=== PATIENT | male | born 1985 | race Caucasian/White ===

== ENCOUNTER 2020-04-02 20:46 | Emergency (ER) | payer OTHER ==
[2020-04-02] MEDS ORDERED: cefTRIAXone 2 GM in Sodium Chloride 0.9% 50 ML IV ONE (21:16)
[2020-04-02] MEDS ORDERED: Sodium Chloride 0.9% 10 ML Syringe FLUSH PRN (21:16)
[2020-04-02] MEDS ORDERED: Sulfamethoxazole/Trimethoprim 800-160 MG Tab PO ONE (21:17)
[2020-04-02] MEDS ORDERED: Acetaminophen 500 MG Tab PO ONE (21:17)
--- NOTE | 2020-04-02 21:22 | EDM.PDOC ---
ED HPI GENERAL MEDICAL PROBLEM - General Chief Complaint: Lower Extremity Injury/Pain Stated Complaint: POSSIBLE INFECTION LT LEG Time Seen by Provider: 04/02/20 21:05 Source of Information: Reports: Patient, RN. Denies: Old Records History Limitations: Reports: Other (no old records) - History of Present Illness INITIAL COMMENTS - FREE TEXT/NARRATIVE: 34 yo male presents with drainage from a skin blister on his L knee and generalized redness of the L knee and L leg below the knee. No fever. No hx of diabetes. Had a scrape on his L knee for a couple of weeks that was healing, then developed a blister on the anterior lower knee that drained earlier today and over the course of the day today has developed generalized redness of that leg from the knee down. Is visiting until tomorrow from [place]. Onset: Gradual Duration: Day(s):, Getting Worse Location: Reports: Lower Extremity, Left Quality: Reports: Dull Severity: Mild Improves with: Reports: None Worsens with: Reports: Other (time) Context: Reports: Other (See HPI) Associated Symptoms: Reports: No Other Symptoms. Denies: Fever/Chills Treatments PLUG ASSEMBLER: Reports: Other (see below) (none) Left Knee Pain Score (Numeric/FACES): 4 - Related Data Allergies Allergy/AdvReac Type Severity Reaction Status Date / Time No Known Allergies Allergy Verified 04/02/20 20:58 Home Meds: Home Meds Naproxen [Naprosyn] 500 mg PO BID 04/02/20 [History] Past Medical History Musculoskeletal History: Reports: Fracture Other Musculoskeletal History: Femur, Hand Neurological History: Reports: Concussion Dermatologic History: Reports: Other (See Below) Other Dermatologic History: skin abcess - Infectious Disease History Infectious Disease History: Reports: Chicken Pox Social & Family History - Tobacco Use Smoking Status *Q: Never Smoker Second Hand Smoke Exposure: No - Caffeine Use Caffeine Use: Reports: Coffee, Energy Drinks, Soda, Tea - Alcohol Use Days Per Week of Alcohol Use: 0 - Recreational Drug Use Recreational Drug Use: No Review of Systems - Review of Systems Review Of Systems: See Below Constitutional: Reports: No Symptoms. Denies: Chills, Fever Skin: Reports: Erythema (from L knee down. ), Wound (large blister on L anterior knee.). Denies: Pruritis Neurological: Reports: No Symptoms ED EXAM, GENERAL - Physical Exam Exam: See Below Exam Limited By: No Limitations General Appearance: Alert, WD/WN, No Apparent Distress Eye Exam: Bilateral Eye: Normal Inspection Ears: Normal External Exam, Normal Canal, Hearing Grossly Normal Ear Exam: Bilateral Ear: Auricle Normal, Canal Normal Nose: Normal Inspection, No Blood Throat/Mouth: Normal Inspection, Normal Lips, Normal Oropharynx, Normal Voice, No Airway Compromise Head: Atraumatic, Normocephalic Neck: Normal Inspection Respiratory/Chest: No Respiratory Distress, Lungs Clear, Normal Breath Sounds, No Accessory Muscle Use Cardiovascular: Regular Rate, Rhythm, No Edema Extremities: Pedal Edema (trace edema of the calf on the L and ankle/foot), Increased Warmth (L leg from knee down. ), Redness (L knee and down.), Other (No joint effusion apparent. No joint pain with knee movement. ) Neurological: Alert, Oriented, CN II-XII Intact, Normal Cognition, No Motor/Sensory Deficits Psychiatric: Normal Affect, Normal Mood Skin Exam: Warm, Dry, No Rash, Erythema (L knee and down to foot), Increased Warmth (L knee and down to foot. ) ED TRAUMA EXTREMITY PROCEDURES - I&D Site: L anterior knee Skin Prep: Chlorhexidine (Hibiciens), Isopropyl Alcohol (Alcohol) Drainage: Clear, Bloody, Small Amount Probed to Break Up Loculations: No Progress/Comments: after prep of the skin I attempted to aspirate fluid from what appeared to be an already burst large blister to the anterior L knee. I was able to aspirate a small amt of clear, bloody fluid that was sent to lab for culture. Course - Vital Signs Last Recorded V/S: Last Vital Signs Temp 36.3 C 04/02/20 21:06 Pulse 90 04/02/20 21:06 Resp 16 04/02/20 21:06 BP 154/88 H 04/02/20 21:06 Pulse Ox 96 04/02/20 21:06 - Orders/Labs/Meds Orders: Active Orders 24 hr Category Date Time Status CULTURE WOUND + SMEAR [RM] Stat Lab 04/02/20 21:30 Results Sodium Chloride 0.9% [Saline Flush] Med 04/02/20 21:16 Active 10 ml FLUSH ASDIRECTED PRN Saline Lock Insert [OM.PC] Routine Oth 04/02/20 21:16 Ordered Medication Orders Sodium Chloride (Saline Flush) 10 ml FLUSH ASDIRECTED PRN PRN Reason: Keep Vein Open Last Admin: 04/02/20 21:38 Dose: 10 ml Documented by: JONNIE Salazar: Medications Generic Name Dose Route Start Last Admin Trade Name Freq PRN Reason Stop Dose Admin Sodium Chloride 10 ml 04/02/20 21:16 04/02/20 21:38 Saline Flush FLUSH 10 ml ASDIRECTED PRN Administration Keep Vein Open Discontinued Medications Generic Name Dose Route Start Last Admin Trade Name Freq PRN Reason Stop Dose Admin Acetaminophen 1,000 mg 04/02/20 21:17 04/02/20 21:32 Tylenol Extra Strength PO 04/02/20 21:18 1,000 mg ONETIME ONE Administration Ceftriaxone Sodium 2 gm/ 50 mls @ 100 mls/hr 04/02/20 21:16 04/02/20 21:39 Sodium Chloride IV 04/02/20 21:45 100 mls/hr ONETIME ONE Administration Trimethoprim/Sulfamethoxazole 1 tab 04/02/20 21:17 04/02/20 21:32 Septra Ds PO 04/02/20 21:18 1 tab ONETIME ONE Administration Departure - Departure Time of Disposition: 22:25 Disposition: Home, Self-Care 01 Condition: Fair Clinical Impression: Cellulitis of leg, left - Discharge Information *PRESCRIPTION DRUG MONITORING PROGRAM REVIEWED*: No *COPY OF PRESCRIPTION DRUG MONITORING REPORT IN PATIENT YRN: No Instructions: Cellulitis, Adult, [id number] Referrals: PCP,None [Primary Care Provider] - Forms: ED Department Discharge Additional Instructions: Keep left leg elevated above your heart. Take acetaminophen up to 1000 mg every 6 hrs for pain relief. Take both antibiotics as directed, your next TMP/SMZ will be due when pharmacies open in the morning. Your next cephalexin will be due at bedtime tomorrow night. Recheck Saturday morning with your doctor, return if worse in the interim. Sepsis Event Note (ED) - Evaluation Sepsis Screening Result: No Definite Risk - Focused Exam Vital Signs: Vital Signs Temp Pulse Resp BP Pulse Ox 04/02/20 21:06 36.3 C 90 16 154/88 H 96 - My Orders Last 24 Hours: My Active Orders 04/02/20 21:16 Sodium Chloride 0.9% [Saline Flush] 10 ml FLUSH ASDIRECTED PRN Saline Lock Insert [OM.PC] Routine 04/02/20 21:30 CULTURE WOUND + SMEAR [RM] Stat - Assessment/Plan Last 24 Hours: My Active Orders 04/02/20 21:16 Sodium Chloride 0.9% [Saline Flush] 10 ml FLUSH ASDIRECTED PRN Saline Lock Insert [OM.PC] Routine 04/02/20 21:30 CULTURE WOUND + SMEAR [RM] Stat
== END 2020-04-02 22:37 | disposition home or self-care (01) ==
LOC: JP.ED 20:46
DX: L03.116 Cellulitis of left lower limb (principal); Z79.899 Other long term (current) drug therapy
CPT/HCPCS: 10160; 87070; 87077; 87186; 87205; 96365; 99282; 99283; A9270; J0696; J7050